=== PATIENT | female | born 1955 | race Caucasian/White ===

== ENCOUNTER → 2016-07-27 | Day surgery (SDC) | payer OTHER ==
[~2016-07-27] MED LIST: THROMBIN (RECOMBINANT) 5,000 UNIT VIAL TP ONE
--- NOTE | 2016-07-27 11:25 | MA ---
Diagnostic Right Digital Mammogram History: Post stereotactic breast biopsy.Evaluate marker placement. Comparison: Diagnostic mammogram July 13, 2016. Technique: Two views of the right breast. Findings: A stereotactically placed clip is present in the breast. There is no significant postproced ural hematoma. . Impression: Excellent post procedural mammogram . Recommendation: Assuming a benign diagnosis, then a six-month followup right mammogram is recommended to reestablish a baseline.
--- NOTE | 2016-07-27 14:49 | MA ---
Stereotactic Core Biopsy Right Breast History: Suspicious developing density right breast. Technique: Following informed consent (which included infection, bleeding and failure to obtain suffi cient specimens for diagnosis), the patient was placed prone on the stereotactic core biopsy table an d the breast was suspended through the open space in the table. A small nodular density was identifie d. The lesion was localized from a CC approach. The skin was then prepped in sterile fashion. Followi ng local anesthesia with 1% lidocaine, lidocaine mixed with epinephrine was injected deeper within th e breast tissue. A small skin amrik was placed on the skin surface through which the 9-gauge [employer] cuum-assisted core biopsy needle was advanced to the appropriate depth. Following confirmation of the microcalcifications adjacent to the needle, core biopsy samples were obtained. A single stereo view was obtained confirming the clip deployment. The patient was sent for a postprocedural mammogram to d ocument clip placement and to look for postprocedural hematoma. She was then discharged without compl ication, with instructions to call us with any thoughts, complications or concerns. Impression: Successful stereotactic core biopsy of in the region of a nodule in the right breast.
== END | disposition home or self-care (01) ==
LOC: FIMAGING 09:17
PROC: 0HBT3ZX Excision of Right Breast, Percutaneous Approach, Diagnostic (ICD-10-PCS; principal; 2016-07-27)
PROC: BH00ZZZ Plain Radiography of Right Breast (ICD-10-PCS; 2016-07-27)
DX: D24.1 Benign neoplasm of right breast (principal); N60.11 Diffuse cystic mastopathy of right breast
CPT/HCPCS: 19081; G0206